=== PATIENT | female | born 1990 | race Caucasian/White ===

== ENCOUNTER 2024-03-17 19:43 | Inpatient (IN) | payer MEDICAID ==
[~2024-03-17] VITALS: Ht 170.2 cm; Wt 118.2 kg
[2024-03-17] VITALS (14 sets, daily range): BP systolic 125–170; BP diastolic 77–873; PULSE 70–98; TEMP 98.2–98.3
--- NOTE | 2024-03-17 19:53 | NUR ---
PT PRESENTS TO L&D WITH C/O SROM AT 1800 FLUID WAS CLEAR.PT FEELING CTX'S LIKE ABD IS GETTING HARD BUT THEY ARE NOT PAINFUL. PT STATE SHE HAD NOT HAD ANY BLEEDING BUT WHEN SHE CHANGED INTO HER GOWN AND USED THE BR TO VOID THERE WAS A LARGE AMOUNT OF BLOOD THAT "PLOPPED" INTO THE TOLIET. PT HAD FLUSHED IT AND DID NOT THINK TO LET NURSE SEE IT. SHE ASKED IF IT WAS NORMAL. PT TO BED. BRIGHT RED BLEEDING NOTED RUNNING DOWN HER LEGS AND 4 SMALL DIME SIZE CLOTS NOTED ON PERINEUM SMALL POOL OF BLOOD NOTED ON PAD UNDER PT. EXTERNAL MONITORS PLACED ON ABD. FHR 135, MOD VARIBILITY, ACCELS NOTED, NO DECELS. CTX'S 2-43 MINS APART, 50-60 SECS. THEY ARE NOT PAINFUL. PT STATES SHE FEELS A VERY LONA STABBING PAIN IN HER LOW BACK WITH EVERY CTX'S SINCE SHE SAW THE BLOOD. SHE DENIES BLEEDING BEFORE SHE CAME TO THE HOSPITAL. SVE /-3. PT HAS A HX OF CHRONIC HTN, GEST DIABETES, SICKLE CELL TRAIT, BIPOLAR, DEPRESSION, ANXIETY, DEPRESSION, SMOKER BUT QUIT, OBESITY. PT STATES SHE IS A REPEAT C/S AND HAS NO DESIRE TO LABOR. BP 170/110, P 88, RESP 18, 188/115, P 90, RESP 20 SATS 98% PT DENIES FLORES, BLURRED VISION, NO SPOTS, NO EDEMA NOTED, BP 157/99, P 93. R 20. 2015 DR GAUTHIER NOTIFIED OF PT'S COMPLAINTS AND NURSES FINDING, BLEEDING AND SVE. ORDERS NOTED TO ADMIT, CBC, CMP, FIBRINOGEN, ALERT CREW FOR C/S. CHARGE NURSE EZEQUIEL GROVE RN, AND LOUISE HICKS CRNA HERE IN HOUSE NOTIFIED. NURSERY AND BLACKING WHEEL TENDER NOTIFIED.
[2024-03-17] MEDS ORDERED: Azithromycin 500 MG in NS 250 ML IV ONE (20:15)
[2024-03-17] MEDS ORDERED: LR 1,000 ML IV SCH (20:15)
[2024-03-17] MEDS ORDERED: Rocuronium 50 MG/5 ML Multi-Dose VIAL ONE (20:22)
[2024-03-17] MEDS ORDERED: Tranexamic Acid 1,000 MG/10 ML VIAL ONE (20:23)
[2024-03-17] MEDS ORDERED: NS 10 ML IV ONE (20:27)
[2024-03-17] MEDS ORDERED: Phenylephrine 10 MG/ML VIAL ONE (20:27)
--- NOTE | 2024-03-17 20:28 | NUR ---
LOUISE HICKS CRNA HERE TO EVALUATE AND TALK TO PT. PT'S QUESTIONS ANSERED. 2031 DR GAUTHIER HERE TO TALK TO PT ABOUT PLAN OF CARE, C/S FOR HER BLEEDING AND HIGH BP's, SROM. AND SHE IS A REPEAT C/S. PT AGREES TO C/S AND PLAN OF CARE. CONSENTS SIGNED,
[2024-03-17] MEDS ORDERED: NS 20 ML IV ONE (20:32)
--- NOTE | 2024-03-17 20:35 | NUR ---
ABD CLIPPED, AND PREPPED WITH HIBICLEANSE. PTS HER, HE WAS INFORMED OF THE PLAN AND AGREED TO C/S. FHR 135, ACCELS, MOD VARIBILTY AND NO DECELS. BLEEDING ON PAD NOTED MODERATE AMT. 2044. PT ON MONITORS AND TRANSFERED TO OR VIA BED, TRANSFERED TO OR TABLE AND SITTING UP FOR SPINAL. PT TOLERATED IT WELL.
[2024-03-17 20:40] LABS: BASO % 0.2 % (0.0-2.0); EOS # 0.1 K/mm3 (0.0-0.7); EOS % 0.4 % (0.0-4.0); GRAN # 8.9 K/mm3 (1.4-6.5); GRAN % 75.6 % (42.2-75.2); HEMATOCRIT 37.7 % (37.0-47.0); HEMOGLOBIN 12.8 g/dl (12.5-16.0); LYMPH % 17.1 % (20.0-51.0); MEAN CELL VOLUME 82 fl (80.0-100.0); MEAN CORPUSCULAR HEMOGLOBIN 28 pg (27-31); MEAN CORPUSCULAR HGB CONC 34 g/dl (33.0-37.0); MEAN PLATELET VOLUME 10.8 fl (7.4-10.4); MONO # 0.7 K/mm3 (0.1-0.6); MONO % 6.3 % (1.7-9.3); PLATELET COUNT 186 K/mm3 (130-400); REDCELL DISTRIBUTION WIDTH-CV 12.2 % (11.5-14.5)
[2024-03-17 21:00] LABS: ALBUMIN 2.8 g/dL (3.5-5.0); BILIRUBIN,TOTAL 0.4 mg/dL (0.2-1.2); CALCIUM 8.5 mg/dL (8.4-10.2); CREATININE, serum 0.76 mg/dL (0.57-1.11); TOTAL PROTEIN 6.6 g/dl (6.2-8.1)
[2024-03-17] MEDS ORDERED: traZODone 50 MG TAB PO PRN (21:00)
[2024-03-17 21:14] LABS: POTASSIUM 3.9 mEq/L (3.5-4.5)
[2024-03-17] MEDS ORDERED: EPINEPHrine 1 MG/1 ML Ampule ONE (21:37)
[2024-03-17] MEDS ORDERED: dexAMETHasone 10 MG/ML VIAL ONE (21:39)
[2024-03-17] MEDS ORDERED: Magnes Hydrox (MOM) 80 MG/ML 30 ML CUP PO PRN (22:15)
[2024-03-17] MEDS ORDERED: Loratadine 10 MG TAB PO PRN (22:15)
--- NOTE | 2024-03-17 23:00 | NUR ---
PT TRANSFERED FROM PACU VIA BED TO PP ROOM 213. PT ORIENTED TO ROOM AND CALL LIGHT, F/C IN PLACE WITH CLEAR YELLOW URINE DRAINING. IV LR WITH PITOCIN 320 UNITS INFUSING VIA GRAVITY. IV SITE CLEAN DRY AND INTACT. DRESSSING CLEAN DRY INTACT AND ABD BINDER IS ON. VS STABLE. FUNDUS FIRM AT UMBILICUS. BLEDDING SCANT.
[2024-03-17] MEDS ORDERED: Measles/Mumps/Rubella Virus Vaccine Live w Diluent 0.5 ML VIAL SQ SCH (23:30)
[2024-03-17] MEDS ORDERED: Acetaminophen 500 MG TAB PO SCH (23:30)
[2024-03-17] MEDS ORDERED: Ondansetron 4 MG/2 ML VIAL IV PRN (23:30)
[2024-03-17] MEDS ORDERED: LR 1,000 ML IV PRN (23:30)
[2024-03-17] MEDS ORDERED: Morphine 4 MG/ML VIAL IV PRN (23:30)
[2024-03-17] MEDS ORDERED: oxyCODONE 5 MG TAB PO PRN (23:30)
[2024-03-17] MEDS ORDERED: Naloxone 0.4 MG/ML VIAL IV PRN (23:30)
[2024-03-18] VITALS (7 sets, daily range): BP systolic 130–145; BP diastolic 76–102; PULSE 71–93; TEMP 97.4–98.7
[2024-03-18] MEDS ORDERED: CYMBALTA 30MG30 MG PO (03:22)
[2024-03-18] MEDS ORDERED: BUSPAR10 MG PO (03:23)
[2024-03-18] MEDS ORDERED: LAMICTAL150 MG PO (03:24)
[2024-03-18] MEDS ORDERED: FERROUS GL325 MG/TAB (03:26)
[2024-03-18] MEDS ORDERED: FOLIC ACID0.4 MG PO (03:27)
[2024-03-18] MEDS ORDERED: NORMODYNE100 MG PO (03:28)
[2024-03-18] MEDS ORDERED: Ibuprofen 600 MG TAB PO SCH (04:15)
[2024-03-18 06:29] LABS: HEMOGLOBIN 12.1 g/dl (12.5-16.0)
[2024-03-18 06:33] LABS: HEMATOCRIT 35.5 % (37.0-47.0)
[2024-03-18] MEDS ORDERED: Sennosides/Docusate 8.6-50 MG TAB PO SCH (08:00)
[2024-03-18] MEDS ORDERED: Labetalol 100 MG TAB PO SCH (18:15)
[2024-03-19 08:14] VITALS: BP 149/104; PULSE 88; TEMP 98
[2024-03-19] MEDS ORDERED: IBU600 MG PO (08:51)
== END 2024-03-19 11:30 | disposition home or self-care (01) | DRG 787 ==
LOC: LDRO 19:43 → LDR 20:23 → OB 20:23
PROVIDERS: Obstetrics & Gynecology; ADMIT Obstetrics & Gynecology
PROC: 10D00Z1 Extraction of Products of Conception, Low, Open Approach (ICD-10-PCS; principal; 2024-03-17)
DX: O34.219 Maternal care for unspecified type scar from previous cesarean delivery (principal); O10.92 Unspecified pre-existing hypertension complicating childbirth; Z3A.38 38 weeks gestation of pregnancy; Z37.0 Single live birth; O99.214 Obesity complicating childbirth; O99.344 Other mental disorders complicating childbirth; F41.9 Anxiety disorder, unspecified; O99.02 Anemia complicating childbirth
CPT/HCPCS: J0171; J0665; J0690; J1100; J2371